=== PATIENT | male | born 1935 | race Caucasian/White ===

== ENCOUNTER 2018-08-15 00:11 | Inpatient (IN) ==
[2018-08-15] MEDS ORDERED: Ringers Solution, Lactated 1,000 ML IVC SCH (02:45)
[2018-08-15 02:51] LABS: Basophils % 0.3 %; Eosinophils # 0.2 K/mcL (0.0-0.6); Hematocrit 29.1 % (37.5-50.1); Hemoglobin 9.5 g/dL (12.9-16.9); Immature Granulocytes % 0.4 % (0-4); Lymphocytes # 0.4 K/mcL (0.6-4.6); Lymphocytes % 5.4 %; Mean Corpuscular HGB Conc 32.6 g/dL (31.6-35.5); Mean Corpuscular Hemoglobin 29.3 pg (28.0-33.3); Mean Corpuscular Volume 89.8 fL (83.0-100.0); Mean Platelet Volume 10.4 fL (9.4-12.4); Monocytes # 0.7 K/mcL (0.0-1.3); Neutrophils # 6.1 K/mcL (1.6-8.9); Platelet Count 160 K/mcL (140-400); Red Blood Count 3.24 M/mcL (4.19-5.50); Red Cell Distribution Width 13.2 % (11.5-14.5); Segmented Neutrophils % 81.9 %
--- NOTE | 2018-08-15 02:51 | Internal Med History&Physical ---
Date of Encounter: 08/15/18 Time of Encounter: 02:48 Internal Medicine - H&P: HPI Chief complaint: bleeding Admitted From: Home Plans for Post Hospital Care: Home History of present illness: Rivas Leary is an 82 year old man with a history of congestive heart failure, valvular heart disease, coronary artery disease, atrial fibrillation on warfarin, hyperlipidemia, Alzheimers dementia and psychotic disorder NOS who presents here on transfer from the [facility] where he was initially admitted to with multiple falls and manage for a UTI and possible pneumonia. He was seen to have epistaxis at the time that required nasal packing. He then developed diane hematuria during hospitalization so his warfarin was held with plans for urology evaluation. It is now reported that he passed a large volume of dark t arry stool with diane blood mixed in. The reporting physician stated that he was unable to get lab work done after this episode as the service was unavailable and could not transfuse either and therefore requested transfer to our center. Of note, he was admitted here 2 years ago for hemoptysis while on warfarin. He arrives here clinically stable. He is able to tell me his name and , occasionally answering appropriately and at other times seemingly confused. He denies abdominal and chest pain. No shortness of breath. Past Med Surg Social Fam HX - Past Medical History Medical history: arthritis, atrial fibrillation, CHF, coronary artery disease, dementia, hyperlipidemia, hypertension, myocardial infarction, valvular heart disease, other Additional medical history: chronic abdominal pain, nasal MRSA, sleep apnea, chronic low back pain, gout, bradycardia, cardiomyopathy Psychiatric history: bipolar, PTSD, other - Past Surgical History Surgical History: heart valve replacement, pacemaker - Social History Smoking Status: Never smoker Alcohol use: none Drug use: none - Family History Mother Living Status: Hx Family Cardiac Disorders: Yes (CHF) Hx Family Endocrine Disorder: Yes (DM2) Father Living Status: Internal Medicine - H&P: Meds Allopurinol [Zyloprim] 200 mg PO DAILY 09/22/16 [History] Atorvastatin [Lipitor] 40 mg PO HS 09/22/16 [History] Calcium Carbonate [Tums] 1,000 mg PO DAILY 09/22/16 [History] Cholecalciferol (Vitamin D3) [Vitamin D3] 2,000 unit PO DAILY 09/22/16 [History] Diltiazem CD (24hr) [Cardizem CD] 120 mg PO DAILY 09/22/16 [History] Docusate [Colace] 200 mg PO BID 09/22/16 [History] Furosemide [Lasix] 20 mg PO BID 09/22/16 [History] Isosorbide MONOnitrate (24 HR) [Imdur] 60 mg PO DAILY 09/22/16 [History] LORazepam [Ativan] 0.5 mg PO BID 09/22/16 [History] Lisinopril [Zestril] 10 mg PO DAILY 09/22/16 [History] Loratadine [Claritin] 10 mg PO DAILY 09/22/16 [History] Memantine HCl 10 mg PO BID 09/22/16 [History] Omeprazole [PriLOSEC] 20 mg PO BIDAC 09/22/16 [History] Paliperidone [Paliperidone ER] 3 mg PO DAILY 09/22/16 [History] Polyethylene Glycol 3350 [MiraLAX] 17 gm PO DAILY PRN 09/22/16 [History] Psyllium Husk (with Sugar) [Konsyl Psyllium Fiber Packet] 3.4 gm PO BID PRN 09/22/16 [History] Spironolactone [Aldactone] 25 mg PO DAILY 09/22/16 [History] Terazosin [Hytrin] 5 mg PO HS 09/22/16 [History] Warfarin [Coumadin] 5 mg PO SUTUTHSA 09/22/16 [History] Warfarin [Coumadin] 7.5 mg PO MOWEFR 09/22/16 [History] carBAMazepine [Tegretol] 200 mg PO QAM 09/22/16 [History] carBAMazepine [Tegretol] 400 mg PO QPM 09/22/16 [History] hydrALAZINE [HydrALAZINE] 10 mg PO Q8H 09/22/16 [History] Amoxicillin/Clavulanate [Augmentin] 875 mg PO BIDWM #7 tablet 10/01/16 [Rx] Aspirin 81 mg PO DAILY tab.chew 10/01/16 [Rx] Allergy/AdvReac Type Severity Reaction Status Date / Time felodipine Allergy See Verified 09/22/16 17:08 Comments All Systems PM: A 10-system review of systems was performed and is negative for pertinent findings except as documented above in the HPI. - Constitutional Vitals: Temp Pulse Resp BP Pulse Ox 98.6 F 89 27 152/62 94 08/15/18 02:00 08/15/18 02:00 08/15/18 02:00 08/15/18 02:00 08/15/18 02:00 Exam: Vitals: Reviewed General: Well developed, NAD Skin: Dry, warm. HEENT: Dry mucous membranes. (+) conjunctivae pallor. Neck: No lymphadenopathy. No JVD. No carotid bruits. No palpable thyroid. Chest: Normal thoracic expansion. Normal breath sounds. Clear to auscultation. Heart: Irregularly irregular. Abdomen: Non-distended, soft and non-tender to palpation. No peritoneal reaction. Extremities: No clubbing, cyanosis or edema. No calf tenderness. Normal distal pulses. Neurological: Awake, alert and oriented to person, place. No focal deficits. Psych: Affect appropriate. - Assessment and plan (1) Hematuria Current Visit: Yes Status: Acute Assessment and plan: Unclear if due to traumatic pelletier insertion or patient tugging against it or if procedent from higher above. Will consult urology as he may need bladder irrigat ion. Continue to monitor H/H, check INR and transfuse if necessary. Qualifiers: Hematuria type: gross Qualified Code(s): R31.0 - Gross hematuria (2) GI bleed Current Visit: Yes Status: Acute Assessment and plan: Witnessed by staff at the ID. Thus far no recurrences since arrival. Will give PPI, continue to monitor H/H, check INR and transfuse if necessary. GI consult will be requested. NPO status. All home oral meds will be on hold in the interim. Qualifiers: GI bleed type/associated pathology: unspecified gastrointestinal hemorrhage type Qualified Code(s): K92.2 - Gastrointestinal hemorrhage, unspecified (3) Atrial fibrillation Current Visit: Yes Status: Acute Assessment and plan: Will monitor on telemetry. Anticoagulation on hold for now due to active bleed. Check INR. Qualifiers: Atrial fibrillation type: chronic Qualified Code(s): I48.2 - Chronic atrial fibrillation (4) Congestive heart failure Current Visit: Yes Status: Acute Assessment and plan: No clinical signs of acute decompensation at this time. Will check an echo to assess EF as last study was 2 years ago. Qualifiers: Heart failure type: unspecified Heart failure chronicity: unspecified Qualified Code(s): I50.9 - Heart failure, unspecified (5) Coronary artery disease Current Visit: Yes Status: Acute Assessment and plan: For now antiplatelet therapy will remain on hold until bleeding is resolved. Qualifiers: Coronary Disease-Associated Artery/Lesion type: unspecified vessel or lesion type [place] vs. transplanted heart: [place] heart Associated angina: without angina Qualified Code(s): I25.10 - Atherosclerotic heart disease of [place] coronary artery without angina pectoris (6) DVT prophylaxis Current Visit: Yes Status: Acute Assessment and plan: IPC stockings ordered. - Time Spent With Patient Total time spent is greater than 50% in coordination of care (as documented) at patient's floor/unit and/or counseling patient: Greater than 35 minutes
[2018-08-15 02:59] LABS: INR 2.5; Prothrombin Time 28.4 Seconds (9.4-12.1)
[2018-08-15 03:01] LABS: Activated Partial Thrombo Time 38.9 Seconds (26.0-36.0)
[2018-08-15 03:05] LABS: Bilirubin,Urine Negative (Negative); Blood,Urine Large (Negative); Glucose,Urine (UA) Normal (Normal); Ketones,Urine Negative (Negative); Leukocyte Esterase,Urine Negative (Negative); Nitrite,Urine Negative (Negative); Protein,Urine >=300 mg/dL (Neg-Trace); Specific Gravity,Urine 1.012 (1.010-1.025); Urobilinogen,Urine Normal (Normal)
[2018-08-15 03:06] LABS: Clarity,Urine Turbid (Clear); Color,Urine Red (Yellow)
[2018-08-15 03:12] LABS: BUN/Creatinine Ratio 25 (6-26); Blood Urea Nitrogen 29 mg/dL (8-23); Calcium 8.4 mg/dL (8.6-10.3); Carbon Dioxide 30 mEq/L (23-29); Chloride 104 mEq/L (98-107); Glucose 143 mg/dL (70-105); Osmolality,Calculated 302 (280-300); Potassium 3.7 mEq/L (3.5-5.1); Sodium 142 mEq/L (136-145); eGFR For Non-African Americans > 60 (> 60)
[2018-08-15] MEDS: Pantoprazole 40 MG VIAL IVP SCH ×2 (05:01→17:44)
--- NOTE | 2018-08-15 09:13 | Urology - Consult Note ---
<Carolin Dugan N - Last Filed: 08/15/18 09:04> Date of Encounter: 08/15/18 Time of Encounter: 08:20 - Assessment and Plan (1) Hematuria Current Visit: Yes Status: Acute Assessment and plan: Patient is 82-year-old male who presents the history of gross hematuria. Patient has a documented history of spontaneous bleeding on warfarin. INR is 2.5. Warfarin has been held secondary to gastrointestinal bleed. Urine appears to be clearing. We will continue to monitor the patient and irrigate bladder as needed. Cystscopy may be warranted, as patient has not experienced routine urologic follow up since TURP procedure. No inpatient surgical intervention anticipated at this time. Qualifiers: Hematuria type: gross Qualified Code(s): R31.0 - Gross hematuria Urology CN:JEANETTE Consult date: 08/15/18 Reason for consult Urology: Gross Hematuria History of present illness: Patient is an 82-year-old male who presents with a history of gross hematuria. Patient was transferred from the [facility] after he was admitted for urinary tract infection and pneumonia. Patient has a significant cardiovascular history requiring anticoagulation with warfarin. It is unclear as to when hematuria was first observed, as the patient experiences some confusion when try ing to recall his past medical history. Patient reports he underwent a TURP procedure 4-5 years ago at the [facility] for urinary hesitancy and states this greatly improved his urinary symptoms. Patient denies a known personal history of prostate cancer, renal stones, or any other significant history. Patient denies a family history of prostate cancer or other cancer. Patient does not require a catheter and states he is unsure why catheter was placed on admission. Patient is unsure if he sustained any trauma on catheter insertion or if the catheter was pulled on. Patient denies smoking history. Catheter was irrigated at bedside by nighttime nursing staff, and urine is curr ently clear yellow with scant sediment in tubing. Past Med Surg Social Fam HX - Past Medical History Medical history: arthritis, atrial fibrillation, CHF, coronary artery disease, dementia, hyperlipidemia, hypertension, myocardial infarction, valvular heart disease, other Additional medical history: chronic abdominal pain, nasal MRSA, sleep apnea, chronic low back pain, gout, bradycardia, cardiomyopathy Psychiatric history: bipolar, PTSD, other - Past Surgical History Surgical History: heart valve replacement, pacemaker - Social History Smoking Status: Never smoker Alcohol use: none Drug use: none - Family History Father Living Status: Mother Living Status: Hx Family Cardiac Disorders: Yes (CHF) Hx Family Endocrine Disorder: Yes (DM2) Medications and Allergies RX: Allopurinol [Zyloprim] 200 mg PO DAILY 09/22/16 [History] RX: Atorvastatin [Lipitor] 40 mg PO HS 09/22/16 [History] RX: Calcium Carbonate [Tums] 1,000 mg PO DAILY 09/22/16 [History] RX: Cholecalciferol (Vitamin D3) [Vitamin D3] 2,000 unit PO DAILY 09/22/16 [History] RX: Diltiazem CD (24hr) [Cardizem CD] 120 mg PO DAILY 09/22/16 [History] RX: Docusate [Colace] 200 mg PO BID 09/22/16 [History] RX: Furosemide [Lasix] 20 mg PO BID 09/22/16 [History] RX: Isosorbide MONOnitrate (24 HR) [Imdur] 60 mg PO DAILY 09/22/16 [History] RX: LORazepam [Ativan] 0.5 mg PO BID 09/22/16 [History] RX: Lisinopril [Zestril] 10 mg PO DAILY 09/22/16 [History] RX: Loratadine [Claritin] 10 mg PO DAILY 09/22/16 [History] RX: Memantine HCl 10 mg PO BID 09/22/16 [History] RX: Omeprazole [PriLOSEC] 20 mg PO BIDAC 09/22/16 [History] RX: Paliperidone [Paliperidone ER] 3 mg PO DAILY 09/22/16 [History] RX: Polyethylene Glycol 3350 [MiraLAX] 17 gm PO DAILY PRN 09/22/16 [History] RX: Psyllium Husk (with Sugar) [Konsyl Psyllium Fiber Packet] 3.4 gm PO BID PRN 09/22/16 [History] RX: Spironolactone [Aldactone] 25 mg PO DAILY 09/22/16 [History] RX: Terazosin [Hytrin] 5 mg PO HS 09/22/16 [History] RX: Warfarin [Coumadin] 5 mg PO SUTUTHSA 09/22/16 [History] RX: Warfarin [Coumadin] 7.5 mg PO MOWEFR 09/22/16 [History] RX: carBAMazepine [Tegretol] 200 mg PO QAM 09/22/16 [History] RX: carBAMazepine [Tegretol] 400 mg PO QPM 09/22/16 [History] RX: hydrALAZINE [HydrALAZINE] 10 mg PO Q8H 09/22/16 [History] Amoxicillin/Clavulanate [Augmentin] 875 mg PO BIDWM #7 tablet 10/01/16 [Rx] RX: Aspirin 81 mg PO DAILY tab.chew 10/01/16 [Rx] Allergy/AdvReac Type Severity Reaction Status Date / Time felodipine Allergy See Verified 09/22/16 17:08 Comments Review of Systems - Constitutional no chills, no fatigue, no fever(s) - EENT Nose, mouth and throat: no dizziness, no headache(s) - Cardiovascular dyspnea, no chest pain, no diaphoresis - Respiratory cough, dyspnea - Gastrointestinal no abdominal pain, no change in bowel habits, no nausea, no vomiting - Genitourinary hematuria, no difficulty urinating, no dysuria, no flank pain, no urinary frequency, no urinary hesitancy, no urinary urgency - Musculoskeletal no back pain, no muscle weakness - Integumentary no erythema, no rash, no swelling - Neurological confusion, no sensory deficit - Psychiatric confusion, no anxiety - Hematologic/Lymphatic easy bleeding, easy bruising - Allergic/Immunologic no throat swelling, no wheezing Exam Initial Vital Signs Temp Pulse Resp BP Pulse Ox 98.6 F 89 27 152/62 94 08/15/18 02:00 08/15/18 02:00 08/15/18 02:00 08/15/18 02:00 08/15/18 02:00 - General physical appearance Present: well developed, no distress, no pain - Eyes Present: PERRL, normal ocular movement - ENT Present: normal nares. Absent: no congestion - Neck Present: no masses, trachea midline - Respiratory Absent: normal respiratory effort - Cardiovascular Cardiovascular exam IM: RRR - Abdomen Abdomen: Present: soft, non tender - Integumentary Present: no rash, no abnormal pigmentation - Neurologic Present: disoriented Urology Results - Labs 08/15/18 02:18 08/15/18 02:18 Abnormal lab results RBC 3.24 M/mcL (4.19-5.50) L 08/15/18 02:18 Hgb 9.5 g/dL (12.9-16.9) L 08/15/18 02:18 Hct 29.1 % (37.5-50.1) L 08/15/18 02:18 Lymphocytes # 0.4 K/mcL (0.6-4.6) L 08/15/18 02:18 PT 28.4 Seconds (9.4-12.1) H 08/15/18 02:18 APTT 38.9 Seconds (26.0-36.0) H 08/15/18 02:18 Carbon Dioxide 30 mEq/L (23-29) H 08/15/18 02:18 BUN 29 mg/dL (8-23) H 08/15/18 02:18 Glucose 143 mg/dL (70-105) H 08/15/18 02:18 Calculated Osmolality 302 (280-300) H 08/15/18 02:18 Calcium 8.4 mg/dL (8.6-10.3) L 08/15/18 02:18 Ur Specimen Adequacy See below A 08/15/18 02:45 Urine Color Red (Yellow) A 08/15/18 02:45 Urine Clarity Turbid (Clear) A 08/15/18 02:45 Urine Protein >=300 mg/dL (Neg-Trace) H 08/15/18 02:45 Urine Blood Large (Negative) H 08/15/18 02:45 Diabetes panel 08/15/18 Range/Units 02:18 Sodium 142 (136-145) mEq/L Potassium 3.7 (3.5-5.1) mEq/L Chloride 104 (98-107) mEq/L Carbon Dioxide 30 H (23-29) mEq/L BUN 29 H (8-23) mg/dL Creatinine 1.16 (0.70-1.30) mg/dL Glucose 143 H (70-105) mg/dL Calcium 8.4 L (8.6-10.3) mg/dL Calcium panel 08/15/18 Range/Units 02:18 Calcium 8.4 L (8.6-10.3) mg/dL Pituitary panel 08/15/18 Range/Units 02:18 Sodium 142 (136-145) mEq/L Potassium 3.7 (3.5-5.1) mEq/L Chloride 104 (98-107) mEq/L Carbon Dioxide 30 H (23-29) mEq/L BUN 29 H (8-23) mg/dL Creatinine 1.16 (0.70-1.30) mg/dL Glucose 143 H (70-105) mg/dL Calcium 8.4 L (8.6-10.3) mg/dL Adrenal panel 08/15/18 Range/Units 02:18 Sodium 142 (136-145) mEq/L Potassium 3.7 (3.5-5.1) mEq/L Chloride 104 (98-107) mEq/L Carbon Dioxide 30 H (23-29) mEq/L BUN 29 H (8-23) mg/dL Creatinine 1.16 (0.70-1.30) mg/dL Glucose 143 H (70-105) mg/dL Calcium 8.4 L (8.6-10.3) mg/dL All other labs normal. Consult Discharge Plan - Plan [facility]errals[facility] Care Provider[facility] - <Justin Hayes - Last Filed: 08/15/18 10:16> Date of Encounter: 08/15/18 - Assessment and Plan (1) Hematuria Current Visit: Yes Status: Acute Assessment and plan: pt seen in conjunction with physician medical technician assistant. Agree with findings. We will continue to follow the patient. Qualifiers: Hematuria type: gross Qualified Code(s): R31.0 - Gross hematuria Exam Initial Vital Signs Temp Pulse Resp BP Pulse Ox 98.6 F 89 27 152/62 94 08/15/18 02:00 08/15/18 02:00 08/15/18 02:00 08/15/18 02:00 08/15/18 02:00 Urology Results - Labs 08/15/18 02:18 08/15/18 02:18 Abnormal lab results RBC 3.24 M/mcL (4.19-5.50) L 08/15/18 02:18 Hgb 9.5 g/dL (12.9-16.9) L 08/15/18 02:18 Hct 29.1 % (37.5-50.1) L 08/15/18 02:18 Lymphocytes # 0.4 K/mcL (0.6-4.6) L 08/15/18 02:18 PT 28.4 Seconds (9.4-12.1) H 08/15/18 02:18 APTT 38.9 Seconds (26.0-36.0) H 08/15/18 02:18 Carbon Dioxide 30 mEq/L (23-29) H 08/15/18 02:18 BUN 29 mg/dL (8-23) H 08/15/18 02:18 Glucose 143 mg/dL (70-105) H 08/15/18 02:18 Calculated Osmolality 302 (280-300) H 08/15/18 02:18 Calcium 8.4 mg/dL (8.6-10.3) L 08/15/18 02:18 Ur Specimen Adequacy See below A 08/15/18 02:45 Urine Color Red (Yellow) A 08/15/18 02:45 Urine Clarity Turbid (Clear) A 08/15/18 02:45 Urine Protein >=300 mg/dL (Neg-Trace) H 08/15/18 02:45 Urine Blood Large (Negative) H 08/15/18 02:45 Diabetes panel 08/15/18 Range/Units 02:18 Sodium 142 (136-145) mEq/L Potassium 3.7 (3.5-5.1) mEq/L Chloride 104 (98-107) mEq/L Carbon Dioxide 30 H (23-29) mEq/L BUN 29 H (8-23) mg/dL Creatinine 1.16 (0.70-1.30) mg/dL Glucose 143 H (70-105) mg/dL Calcium 8.4 L (8.6-10.3) mg/dL Calcium panel 08/15/18 Range/Units 02:18 Calcium 8.4 L (8.6-10.3) mg/dL Pituitary panel 08/15/18 Range/Units 02:18 Sodium 142 (136-145) mEq/L Potassium 3.7 (3.5-5.1) mEq/L Chloride 104 (98-107) mEq/L Carbon Dioxide 30 H (23-29) mEq/L BUN 29 H (8-23) mg/dL Creatinine 1.16 (0.70-1.30) mg/dL Glucose 143 H (70-105) mg/dL Calcium 8.4 L (8.6-10.3) mg/dL Adrenal panel 08/15/18 Range/Units 02:18 Sodium 142 (136-145) mEq/L Potassium 3.7 (3.5-5.1) mEq/L Chloride 104 (98-107) mEq/L Carbon Dioxide 30 H (23-29) mEq/L BUN 29 H (8-23) mg/dL Creatinine 1.16 (0.70-1.30) mg/dL Glucose 143 H (70-105) mg/dL Calcium 8.4 L (8.6-10.3) mg/dL All other labs normal.
--- NOTE | 2018-08-15 12:09 | Gastroenterology Consult Note ---
<Brie Bueno - Last Filed: 08/15/18 16:35> Date of Encounter: 08/15/18 Time of Encounter: 11:00 - Assessment and plan (1) Anemia Current Visit: No Status: Acute Assessment and plan: 82 year old male who is on coumadin. He presented with melena, epistaxis and hematuria. Coumadin is on hold. Will proceed with EGD tomorrow to rule out puD, gastritis, duodenitis, MW tear, or AVM. Continue PPI, monitor H&h, transfuse as needed. Qualifiers: Anemia type: other cause Other causes of anemia: other cause, not classified Qualified Code(s): D64.89 - Other specified anemias (2) Acute exacerbation of CHF (congestive heart failure) Current Visit: No Status: Acute (3) GI bleed Current Visit: Yes Status: Acute Qualifiers: GI bleed type/associated pathology: melena Qualified Code(s): K92.1 - Melena - Time Spent With Patient Total time spent is greater than 50% in coordination of care (as documented) at patient's floor/unit and/or counseling patient: GI History of Present Illness - Data of Consult Patient: new to practice Consult date: 08/15/18 Requesting Physician: Atul Nieto MD - Consult Narrative Reason for consult: melena History of present illness: Rivas Leary is an 82 year old man with a history of congestive heart failure, valvular heart disease, coronary artery disease, atrial fibrillation on warfarin, hyperlipidemia, Alzheimers dementia and psychotic disorder. He presented here on transfer from the [facility] where he was initially admitted to with multiple falls and manage for a UTI and possible pneumonia. He was seen to have epistaxis at the time that required nasal packing. He then developed fra nk hematuria during hospitalization so his warfarin was held with plans for urology evaluation. It is now reported that he passed a large volume of dark tarry stool with diane blood mixed in. The reporting physician stated that he was unable to get lab work done after this episode as the service was unavailable and could not transfuse either and therefore requested transfer to our center. Of note, he was admitted here 2 years ago for hemoptysis while on warfarin. Hgb was 9.5 on admission baseline 10-11. INR was 2.5. He denies any abdominal pain, nausea, vomiting, GERD. he does admit to one episode of large amount black stool, shortness of breath and weakness. Colonoscopy: 2 years ago per pt? Anticoagulants: coumadin Past Med Surg Social Fam HX - Past Medical History Medical history: arthritis, atrial fibrillation, CHF, coronary artery disease, dementia, hyperlipidemia, hypertension, myocardial infarction, valvular heart disease, other Additional medical history: chronic abdominal pain, nasal MRSA, sleep apnea, chronic low back pain, gout, bradycardia, cardiomyopathy Psychiatric history: bipolar, PTSD, other - Past Surgical History Surgical History: heart valve replacement, pacemaker - Social History Smoking Status: Never smoker Alcohol use: none Drug use: none - Family History Mother Living Status: Hx Family Cardiac Disorders: Yes (CHF) Hx Family Endocrine Disorder: Yes (DM2) Father Living Status: Review of Systems: GI: as per [place] GENERAL: denies fever, has some chills EYES: denies yellow discoloration ENT: denies pain with swallowing or difficulty swallowing CARDIO: denies chest pain, palpitations RESP: Shortness of breath with exertion : denies change in color of urine NEURO: weakness HEME: Denies any bruising MS: chronic back and joint DERM: denies rash or itching PSYCH: Denies history of anxiety or depression - Constitutional Vitals: Temp Pulse Resp BP Pulse Ox 99.6 F 74 16 151/60 97 08/15/18 08:03 08/15/18 11:00 08/15/18 11:00 08/15/18 11:00 08/15/18 11:00 Exam: CONSTITUTIONAL:alert, no acute distress.HEAD:normocephalic.EYES:no jaundice.NECK:no obvious swelling.HEART:regular rate and rhythm, no m urmurs.LUNGS:bilateral poor air entry.ABDOMEN:non distended, soft, non tender, no masses palpable, no organomegaly.RECTAL EXAM:Deferred.EXTREMITIES:no clubbing, cyanosis, trace BLE edema.SKIN:no stigmata of chronic liver disease.NEUROLOGIC:no obvious focal defect. Results - Labs CBC & Chem 7: 08/15/18 02:18 08/15/18 02:18 Labs: Last Result Calcium 8.4 mg/dL (8.6-10.3) L 08/15/18 02:18 Entire Visit Hgb 9.5 g/dL (12.9-16.9) L 08/15/18 02:18 Hct 29.1 % (37.5-50.1) L 08/15/18 02:18 PT 28.4 Seconds (9.4-12.1) H 08/15/18 02:18 - ABG ABG results: PT/INR, D-dimer PT 28.4 Seconds (9.4-12.1) H 08/15/18 02:18 Consult Discharge Plan - Plan [facility]errals: [facility] [Primary Care Provider] - <Roselia Barnhart - Last Filed: 08/15/18 16:53> Date of Encounter: 08/15/18 Time of Encounter: 14:00 - Time Spent With Patient Total time spent is greater than 50% in coordination of care (as documented) at patient's floor/unit and/or counseling patient: GI History of Present Illness - Data of Consult Requesting Physician: Atul Nieto MD - Consult Narrative History of present illness: Mr. Leary is a 82 year old male - Constitutional Vitals: Temp Pulse Resp BP Pulse Ox 98.9 F 77 15 184/79 95 08/15/18 12:00 08/15/18 16:00 08/15/18 16:00 08/15/18 16:00 08/15/18 16:00 Results - Labs CBC & Chem 7: 08/15/18 02:18 08/15/18 02:18 Labs: Last Result Calcium 8.4 mg/dL (8.6-10.3) L 08/15/18 02:18 Entire Visit Hgb 9.5 g/dL (12.9-16.9) L 08/15/18 02:18 Hct 29.1 % (37.5-50.1) L 08/15/18 02:18 PT 28.4 Seconds (9.4-12.1) H 08/15/18 02:18 - ABG ABG results: PT/INR, D-dimer PT 28.4 Seconds (9.4-12.1) H 08/15/18 02:18 - Attending Attestation I have personally performed a face to face evaluation on this patient. I have reviewed and agree with the care plan. History and Exam by me shows: Patient seen in the ICU per patient. Per The patient was having black stool. Per nursing staff last bowel movement was brown. Denies any abdominal pain and abdomen is soft. Assessment: Patient with melena with high INR due to chronic Coumadin intake. Recommendation: EGD to make sure no peptic ulcer disease
[2018-08-15] MEDS ORDERED: *HR* Labetalol 20 MG/4 ML SYRINGE IVP ONE (17:49)
[2018-08-16] MEDS: Pantoprazole 40 MG VIAL IVP SCH ×2 (05:14→17:15)
[2018-08-16 05:44] LABS: Basophils % 0.3 %; Eosinophils # 0.4 K/mcL (0.0-0.6); Eosinophils % 5.2 %; Hematocrit 29.1 % (37.5-50.1); Hemoglobin 9.5 g/dL (12.9-16.9); Immature Granulocytes % 0.6 % (0-4); Lymphocytes # 0.8 K/mcL (0.6-4.6); Mean Corpuscular HGB Conc 32.6 g/dL (31.6-35.5); Mean Corpuscular Hemoglobin 29.6 pg (28.0-33.3); Mean Corpuscular Volume 90.7 fL (83.0-100.0); Monocytes # 0.7 K/mcL (0.0-1.3); Monocytes % 10.7 %; Platelet Count 167 K/mcL (140-400); Red Blood Count 3.21 M/mcL (4.19-5.50); Red Cell Distribution Width 13.2 % (11.5-14.5); Segmented Neutrophils % 72.2 %
[2018-08-16 06:04] LABS: Alanine Aminotransferase 61 Units/L (7-52); Alkaline Phosphatase 120 Units/L (34-104); Aspartate Amino Transferase 82 Units/L (13-39); BUN/Creatinine Ratio 23 (6-26); Bilirubin,Total 0.3 mg/dL (0.3-1.0); Blood Urea Nitrogen 24 mg/dL (8-23); Calcium 8.5 mg/dL (8.6-10.3); Carbon Dioxide 31 mEq/L (23-29); Chloride 105 mEq/L (98-107); Globulin 2.9 g/dL (2.4-3.5); Glucose 122 mg/dL (70-105); Osmolality,Calculated 301 (280-300); Potassium 3.8 mEq/L (3.5-5.1); Sodium 143 mEq/L (136-145); Total Protein 5.9 g/dL (6.4-8.9); eGFR For Non-African Americans > 60 (> 60)
--- NOTE | 2018-08-16 08:36 | Internal Med Progress Note ---
Hospitalist Progress Note - Encounter Date of Encounter: 08/16/18 Time of Encounter: 08:19 - Subjective Interval History: Patient seen and examined this morning. No acute events. Confused. Did not have any complains. Denies any pain, sob. Urine still blood and occasional clots. HR controlled. On 2L supplemental oxygne. No fever, chills, N/V. NPO. no Bloody BM. - Exam Vitals: Temp Pulse Resp BP Pulse Ox 99.1 F 62 22 175/79 96 08/16/18 03:00 08/16/18 06:00 08/16/18 06:00 08/16/18 06:00 08/16/18 06:00 Exam: General: Well developed, NAD. Obese Skin: Dry, warm. HEENT: Dry mucous membranes. Neck: No lymphadenopathy. No JVD. No carotid bruits. No palpable thyroid. Chest: Normal thoracic expansion. Normal breath sounds. Clear to auscultation. Heart: regular rhytm. ejection systolic murmur. Abdomen: Non-distended, soft and non-tender to palpation. No peritoneal reaction. Extremities: No clubbing, cyanosis or edema. No calf tenderness. Normal distal pulses. Neurological:Confused. AOx1. No focal deficits - Assessment and Plan (1) Atrial fibrillation Current Visit: Yes Status: Acute (2) Congestive heart failure Current Visit: Yes Status: Acute (3) DVT prophylaxis Current Visit: Yes Status: Acute (4) Coronary artery disease Current Visit: Yes Status: Acute (5) Hematuria Current Visit: Yes Status: Acute (6) GI bleed Current Visit: Yes Status: Acute - Summary of Assessment and Plan Summary of Assessment and Plan: GI bleed - Witnessed by staff at the [facility]. No further evidence here. - c/w PPI. NPO - H&H and vitals stable. will tansfuse if necessary. GI consult will be request ed. - Plan for EGD today. GI following. Recommendation appreciated. - Hold coumadin Hematuria - h/o prostate ca and TURP and not had follow up. - Unclear if due to traumatic pelletier insertion or patient tugging against it - Urology following. No intervention as of now. On bladder irrigation. - Still with blood in urine and occasional clots. Urology recommendations appreciated. HTN - PO meds on hold - BP high. start hydralazine 10 q8hr. - continue to monitor Atrial fibrillation - rate controlled. Will start cardizem if needed. Restart home dose when started on diet. - [id number] of 5. Anticoagulation on hold for now due to active bleed. - Will monitor on telemetry. Congestive heart failure - No clinical signs of acute decompensation - ECHO with EF of 60-65, Mod LVH, mild Lt diastolic dysfunction. severe pulmonary HTN. Mod aortic stenosis. Mild dilated lt atrium. Coronary artery disease - Does not appear to be on aspirin or plavix at home - Will start statin when able to. DVT prophylaxis - IPC stockings. - Time Spent with Patient Total time spent is greater than 50% in coordination of care (as documented) at patient's floor/unit and/or counseling patient: Internal Medicine: Result - Labs CBC & Chem 7: 08/16/18 05:31 08/16/18 05:31 Labs: Short CBC 08/16/18 Range/Units 05:31 WBC 6.9 (4.3-11.1) K/mcL Hgb 9.5 L (12.9-16.9) g/dL Hct 29.1 L (37.5-50.1) % Plt Count 167 (140-400) K/mcL Neutrophils # 5.0 (1.6-8.9) K/mcL BMP 08/16/18 05:31 Sodium 143 Potassium 3.8 Chloride 105 Carbon Dioxide 31 H BUN 24 H Creatinine 1.05 Glucose 122 H Calcium 8.5 L Liver Function 08/16/18 Range/Units 05:31 Total Bilirubin 0.3 (0.3-1.0) mg/dL AST 82 H (13-39) Units/L ALT 61 H (7-52) Units/L Alkaline Phosphatase 120 H (34-104) Units/L Albumin 3.0 L (3.5-5.7) g/dL - ABG Interpretation ABG results: PT/INR, D-dimer PT 28.4 Seconds (9.4-12.1) H 08/15/18 02:18 - Impressions Impressions Echocardiogram 08/15/18 02:45 Impressions: LVEF 60-65%. Normal LV chamber size and systolic function. Moderate concentric left ventricular hypertrophy. Mild left ventricular diastolic dysfunction. Normal right ventricular structure and function. Mildly dilated left atrium. Moderate aortic stenosis. Mild-moderate mitral regurgitation. Mild-moderate tricuspid regurgitation. Severe pulmonary hypertension. Left Ventricular Wall Motion: Rest Echo Findings All wall segments showed normal motion. Findings: Study Quality * Technically adequate exam. ECG Findings * Paced rhythm. Left Ventricle * LVEF 60-65%. * Normal LV chamber size and systolic function. * Moderate concentric left ventricular hypertrophy. * Mild left ventricular diastolic dysfunction. * Atypical septal motion consistent with paced rhythm. Right Ventricle * Normal right ventricular structure and function. Left Atrium * Mildly dilated left atrium. Right Atrium * Normal right atrial size. Interatrial Septum * Interatrial septum not well evaluated. Aortic Valve * Severely calcified aortic valve leaflets. * Moderate aortic stenosis. * Trace aortic regurgitation. Mitral Valve * No mitral stenosis. * Mild-moderate mitral regurgitation. Tricuspid Valve * Normal tricuspid valve structure. * No tricuspid stenosis. * Mild-moderate tricuspid regurgitation. * Estimated RVSP is 67 mmHg. * Estimated RA pressure is 10 mmHg. * Severe pulmonary hypertension. Pulmonic Valve * Pulmonic valve is not well visualized. * No pulmonic stenosis. * Trace pulmonic regurgitation. Aorta * Normally sized aortic root. Pericardium * The pericardium appears normal. IVC * Normal IVC dimensions and inspiratory collapse. Device lead * A device lead was visualized in the right atrium and right ventricle. - VTE Documentation of Mechanical Device: Intermittent pneumatic compression device Consult Discharge Plan - Plan [facility]errals: [facility] [Primary Care Provider] - (1) Atrial fibrillation Qualifiers: Atrial fibrillation type: chronic Qualified Code(s): I48.2 - Chronic atrial fibrillation (2) Congestive heart failure Qualifiers: Heart failure type: unspecified Heart failure chronicity: unspecified Qualified Code(s): I50.9 - Heart failure, unspecified (4) Coronary artery disease Qualifiers: Coronary Disease-Associated Artery/Lesion type: unspecified vessel or lesion type [place] vs. transplanted heart: [place] heart Associated angina: without angina Qualified Code(s): I25.10 - Atherosclerotic heart disease of [place] coronary artery without angina pectoris (5) Hematuria Qualifiers: Hematuria type: gross Qualified Code(s): R31.0 - Gross hematuria (6) GI bleed Qualifiers: GI bleed type/associated pathology: melena Qualified Code(s): K92.1 - Melena
[2018-08-16 08:42] LABS: INR 2.7; Prothrombin Time 29.9 Seconds (9.4-12.1)
--- NOTE | 2018-08-16 10:34 | Urology Progress Note ---
<Carolni Dugan N - Last Filed: 08/16/18 11:20> Date of Encounter: 08/16/18 Time of Encounter: 09:50 - Assessment and Plan (1) Hematuria Current Visit: Yes Status: Acute Assessment and plan: Patient is an 82 year old male who presents with a history of gross hematuria. Patient's urine was clear on initial examination yesterday, but today, urine is opaque fruit punch with small clots at urethral meatus. Plan to upsize catheter to 24Fr 3-way and initiate CBI. Qualifiers: Hematuria type: gross Qualified Code(s): R31.0 - Gross hematuria Progress Note Narrative: Patient seen and examined lying in bed in no apparent distress. Patient reports bleeding around catheter. Rey catheter is indwelling and draining opaque fruit punch urine into bedside bag. Nurse reports Patient denies fever, chills, flank pain. Objective Initial Vital Signs Pulse Resp BP Pulse Ox 68 19 160/64 95 08/15/18 00:00 08/15/18 00:00 08/15/18 00:00 08/15/18 00:00 - General physical appearance Present: well developed, no distress - Respiratory Present: normal expansion. Absent: normal respiratory effort - Abdomen Present: soft, non tender - Genitourinary Present: normal penis with no external lesions Urine Appearance: Present: Cloudy, Hematuria - Integumentary Present: no rash, no abnormal pigmentation - Musculoskeletal Present: normal posture - Psychiatric Present: oriented to time, oriented to person, oriented to place, speech is normal, memory intact - Labs 08/16/18 05:31 08/16/18 05:31 Diabetes panel 08/16/18 Range/Units 05:31 Sodium 143 (136-145) mEq/L Potassium 3.8 (3.5-5.1) mEq/L Chloride 105 (98-107) mEq/L Carbon Dioxide 31 H (23-29) mEq/L BUN 24 H (8-23) mg/dL Creatinine 1.05 (0.70-1.30) mg/dL Glucose 122 H (70-105) mg/dL Calcium 8.5 L (8.6-10.3) mg/dL AST 82 H (13-39) Units/L ALT 61 H (7-52) Units/L Alkaline Phosphatase 120 H (34-104) Units/L Albumin 3.0 L (3.5-5.7) g/dL Calcium panel 08/16/18 Range/Units 05:31 Calcium 8.5 L (8.6-10.3) mg/dL Albumin 3.0 L (3.5-5.7) g/dL Pituitary panel 08/16/18 Range/Units 05:31 Sodium 143 (136-145) mEq/L Potassium 3.8 (3.5-5.1) mEq/L Chloride 105 (98-107) mEq/L Carbon Dioxide 31 H (23-29) mEq/L BUN 24 H (8-23) mg/dL Creatinine 1.05 (0.70-1.30) mg/dL Glucose 122 H (70-105) mg/dL Calcium 8.5 L (8.6-10.3) mg/dL Adrenal panel 08/16/18 Range/Units 05:31 Sodium 143 (136-145) mEq/L Potassium 3.8 (3.5-5.1) mEq/L Chloride 105 (98-107) mEq/L Carbon Dioxide 31 H (23-29) mEq/L BUN 24 H (8-23) mg/dL Creatinine 1.05 (0.70-1.30) mg/dL Glucose 122 H (70-105) mg/dL Calcium 8.5 L (8.6-10.3) mg/dL Total Bilirubin 0.3 (0.3-1.0) mg/dL AST 82 H (13-39) Units/L ALT 61 H (7-52) Units/L Alkaline Phosphatase 120 H (34-104) Units/L Albumin 3.0 L (3.5-5.7) g/dL Procedures:Urology - Catheter Insertion (Urinary) Prophylactic antibiotics given: No Bladder Scan/Ultrasound used before catheterization: No Preparation: Povidone-Iodine, Lidocaine Jelly Type of catheter inserted: 3 way Catheter American Size: 24 Topical anesthesia used: Yes Results: successfully catheterized-immediate flow Urine Appearance: Hematuria, Small Blood Clots Patient tolerated procedure: well, no complications Complications: bloody urine - VTE Documentation of Mechanical Device: Intermittent pneumatic compression device Consult Discharge Plan - Plan Referrals: [facility] [Primary Care Provider] - <Justin Hayes - Last Filed: 08/16/18 18:53> Date of Encounter: 08/16/18 - Assessment and Plan (1) Hematuria Current Visit: Yes Status: Acute Assessment and plan: pt seen this afternoon. urine clearing with CBI. will continue to follow. hop efully will clear in next day or so. Qualifiers: Hematuria type: gross Qualified Code(s): R31.0 - Gross hematuria Objective Initial Vital Signs Pulse Resp BP Pulse Ox 68 19 160/64 95 08/15/18 00:00 08/15/18 00:00 08/15/18 00:00 08/15/18 00:00 - Labs 08/16/18 05:31 08/16/18 05:31 Diabetes panel 08/16/18 Range/Units 05:31 Sodium 143 (136-145) mEq/L Potassium 3.8 (3.5-5.1) mEq/L Chloride 105 (98-107) mEq/L Carbon Dioxide 31 H (23-29) mEq/L BUN 24 H (8-23) mg/dL Creatinine 1.05 (0.70-1.30) mg/dL Glucose 122 H (70-105) mg/dL Calcium 8.5 L (8.6-10.3) mg/dL AST 82 H (13-39) Units/L ALT 61 H (7-52) Units/L Alkaline Phosphatase 120 H (34-104) Units/L Albumin 3.0 L (3.5-5.7) g/dL Calcium panel 08/16/18 Range/Units 05:31 Calcium 8.5 L (8.6-10.3) mg/dL Albumin 3.0 L (3.5-5.7) g/dL Pituitary panel 08/16/18 Range/Units 05:31 Sodium 143 (136-145) mEq/L Potassium 3.8 (3.5-5.1) mEq/L Chloride 105 (98-107) mEq/L Carbon Dioxide 31 H (23-29) mEq/L BUN 24 H (8-23) mg/dL Creatinine 1.05 (0.70-1.30) mg/dL Glucose 122 H (70-105) mg/dL Calcium 8.5 L (8.6-10.3) mg/dL Adrenal panel 08/16/18 Range/Units 05:31 Sodium 143 (136-145) mEq/L Potassium 3.8 (3.5-5.1) mEq/L Chloride 105 (98-107) mEq/L Carbon Dioxide 31 H (23-29) mEq/L BUN 24 H (8-23) mg/dL Creatinine 1.05 (0.70-1.30) mg/dL Glucose 122 H (70-105) mg/dL Calcium 8.5 L (8.6-10.3) mg/dL Total Bilirubin 0.3 (0.3-1.0) mg/dL AST 82 H (13-39) Units/L ALT 61 H (7-52) Units/L Alkaline Phosphatase 120 H (34-104) Units/L Albumin 3.0 L (3.5-5.7) g/dL
--- NOTE | 2018-08-16 12:17 | Event Note ---
Date of Encounter: 08/16/18 Time of Encounter: 12:00 Unable to complete EGD today due to INR 2.7. Will plan for EGD tomorrow if INR around 2. Can resume diet if no other contraindications.
[2018-08-16] MEDS ORDERED: *HR* LORazepam 0.5 MG TABLET PO ONE (21:28)
[2018-08-17] MEDS ORDERED: OXYCODONE Oral CONC 10 MG/0.5 ML ORAL.SYG SL ONE ×2 (02:23→05:57)
[2018-08-17] MEDS: Pantoprazole 40 MG VIAL IVP SCH ×2 (06:28→19:00)
--- NOTE | 2018-08-17 06:38 | Urology Progress Note ---
Date of Encounter: 08/17/18 Time of Encounter: 06:36 - Assessment and Plan (1) Hematuria Current Visit: Yes Status: Acute Assessment and plan: Based on my exam and irrigation today I do not suspect that clot retention and overflow incontinence overnight. Likely severe bladder spasms. We will stop CBI, start hyoscyamine, start B and O suppository Qualifiers: Hematuria type: gross Qualified Code(s): R31.0 - Gross hematuria Progress Note Narrative: Called because of significant pain from the catheter and significant leakage around the catheter overnight. Bladder scan 30 mL Objective Initial Vital Signs Pulse Resp BP Pulse Ox 68 19 160/64 95 08/15/18 00:00 08/15/18 00:00 08/15/18 00:00 08/15/18 00:00 - General physical appearance Present: no distress - Additional Exam I irrigated the catheter multiple times at the bedside. I had return of small amount of clot but otherwise irrigated easily. I do not suspect clot retention - Labs 08/16/18 05:31 08/16/18 05:31 - VTE Documentation of Mechanical Device: Intermittent pneumatic compression device Consult Discharge Plan - Plan Referrals: [facility] [Primary Care Provider] -
[2018-08-17 07:54] LABS: INR 2.5; Prothrombin Time 28.2 Seconds (9.4-12.1)
[2018-08-17] MEDS: *HR* Belladonna Alkaloids/Opium 30 MG RECTAL SUPPOSITORY RC PRN ×2 (09:24→15:39)
--- NOTE | 2018-08-17 09:33 | Urology Progress Note ---
<Carolin Dugan Zahra - Last Filed: 08/17/18 09:30> Date of Encounter: 08/17/18 Time of Encounter: 08:15 - Assessment and Plan (1) Hematuria Current Visit: Yes Status: Acute Assessment and plan: Patient is an 82-year-old male who presents the history of gross hematuria. Patient was initially upsized to a 24-[place] hematuria catheter and started on continuous bladder irrigation. He has gone through multiple hand irrigations to achieve clear urine. Urine is currently clear and draining into bedside bag. H&H is stable. We will reevaluate this afternoon. Qualifiers: Hematuria type: gross Qualified Code(s): R31.0 - Gross hematuria Progress Note Subjective: no new complaints, feels better Narrative: Patient seen and examined sitting upright in bed in no apparent distress. Patient denies catheter discomfort or feeling of obstruction. Urine is clear yellow and draining into bedside bag. Objective Initial Vital Signs Pulse Resp BP Pulse Ox 68 19 160/64 95 08/15/18 00:00 08/15/18 00:00 08/15/18 00:00 08/15/18 00:00 - General physical appearance Present: well developed, no distress, no pain - Respiratory Present: normal expansion, normal respiratory effort - Abdomen Present: soft, non tender - Genitourinary Urine Appearance: Present: Clear - Integumentary Present: no rash, no abnormal pigmentation - Musculoskeletal Present: normal posture - Psychiatric Present: oriented to time, oriented to person, oriented to place, speech is normal, memory intact - Labs 08/16/18 05:31 08/16/18 05:31 - VTE Documentation of Mechanical Device: Intermittent pneumatic compression device Consult Discharge Plan - Plan Referrals: [facility] [Primary Care Provider] - <Justin Hayes - Last Filed: 08/18/18 06:30> Date of Encounter: 08/18/18 - Assessment and Plan (1) Hematuria Current Visit: Yes Status: Acute Assessment and plan: 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 Agree with plan and treatment Qualifiers: Hematuria type: gross Qualified Code(s): R31.0 - Gross hematuria Objective Initial Vital Signs Pulse Resp BP Pulse Ox 68 19 160/64 95 08/15/18 00:00 08/15/18 00:00 08/15/18 00:00 08/15/18 00:00 - Labs 08/18/18 06:07 08/16/18 05:31
--- NOTE | 2018-08-17 13:07 | Internal Med Progress Note ---
Hospitalist Progress Note - Encounter Date of Encounter: 08/17/18 Time of Encounter: 11:15 - Subjective Interval History: Patient seen and examined this morning. No acute events. Denies new complains. c/o pain around penis. Denies any pain, sob. No fever, chills, N/V. NPO. no Bloody BM. - Exam Vitals: Temp Pulse Resp BP Pulse Ox 98.3 F 66 16 164/67 95 08/17/18 10:36 08/17/18 10:36 08/17/18 10:36 08/17/18 10:36 08/17/18 10:36 Exam: General: Well developed, NAD. Obese Neck: No lymphadenopathy. No JVD. No carotid bruits. No palpable thyroid. Chest: Normal thoracic expansion. Normal breath sounds. Clear to auscultation. Heart: regular rhytm. ejection systolic murmur. Abdomen: Non-distended, soft and non-tender to palpation. No peritoneal reaction. Rey catheter in place. clear dark urine. Extremities: No clubbing, cyanosis or edema. No calf tenderness. Normal distal pulses. Neurological: Confused. AOx1. No focal deficits - Assessment and Plan (1) Atrial fibrillation Current Visit: Yes Status: Acute (2) Congestive heart failure Current Visit: Yes Status: Acute (3) DVT prophylaxis Current Visit: Yes Status: Acute (4) Coronary artery disease Current Visit: Yes Status: Acute (5) Hematuria Current Visit: Yes Status: Acute (6) GI bleed Current Visit: Yes Status: Acute - Summary of Assessment and Plan Summary of Assessment and Plan: GI bleed - Witnessed by staff at the [facility]. No further evidence here. - DId not have EGD given elevated INR yesterday. Plan to have it today. - c/w PPI. - H&H and vitals stable. will tansfuse if necessary. - Hold coumadin Hematuria - h/o prostate ca and TURP and not had follow up. - Urology following. CBI stopped. Stared on hyoscyamine for bladder spasm. No suspicion of clot retention. HTN - PO meds on hold - c/w hydralazine - continue to monitor Atrial fibrillation - rate controlled. Will start cardizem if needed. Restart home dose when started on diet. - [id number] of 5. Anticoagulation on hold for now due to active bleed. - Will monitor on telemetry. Congestive heart failure - No clinical signs of acute decompensation - ECHO with EF of 60-65, Mod LVH, mild Lt diastolic dysfunction. severe pulmonary HTN. Mod aortic stenosis. Mild dilated lt atrium. Coronary artery disease - Does not appear to be on aspirin or plavix at home - Will start statin when able to. DVT prophylaxis - IPC stockings. - Time Spent with Patient Total time spent is greater than 50% in coordination of care (as documented) at patient's floor/unit and/or counseling patient: Internal Medicine: Result - Labs CBC & Chem 7: 08/16/18 05:31 08/16/18 05:31 - ABG Interpretation ABG results: PT/INR, D-dimer PT 28.2 Seconds (9.4-12.1) H 08/17/18 07:21 - VTE Documentation of Mechanical Device: Intermittent pneumatic compression device Consult Discharge Plan - Plan Referrals: [facility] [Primary Care Provider] - (1) Atrial fibrillation Qualifiers: Atrial fibrillation type: chronic Qualified Code(s): I48.2 - Chronic atrial fibrillation (2) Congestive heart failure Qualifiers: Heart failure type: unspecified Heart failure chronicity: unspecified Qualified Code(s): I50.9 - Heart failure, unspecified (4) Coronary artery disease Qualifiers: Coronary Disease-Associated Artery/Lesion type: unspecified vessel or lesion type [place] vs. transplanted heart: [place] heart Associated angina: without angina Qualified Code(s): I25.10 - Atherosclerotic heart disease of [place] coronary artery without angina pectoris (5) Hematuria Qualifiers: Hematuria type: gross Qualified Code(s): R31.0 - Gross hematuria (6) GI bleed Qualifiers: GI bleed type/associated pathology: melena Qualified Code(s): K92.1 - Elisa
[2018-08-17] MEDS: Furosemide 20 MG/2 ML VIAL IVP SCH (14:02)
[2018-08-17] MEDS ORDERED: *HR* Midazolam HCl 5 MG/5 ML VIAL IVP ONE ×2 (17:19→17:28)
[2018-08-17] MEDS ORDERED: *HR* FentaNYL (PF) 100 MCG/2 ML VIAL ONE (17:19)
[2018-08-17] MEDS ORDERED: Tetracaine/Benzocaine/Butamben 1 SPRAY AEROSOL MM ONE (17:28)
[2018-08-17] MEDS ORDERED: *HR* FentaNYL (PF) 100 MCG/2 ML VIAL IVP ONE (17:28)
[2018-08-17] MEDS ORDERED: Simethicone 40 MG/0.6 ML MLS IR ONE (17:28)
--- NOTE | 2018-08-17 17:30 | Pre-Sedation Evaluation ---
Pre-sedation evaluation - Pre-sedation checklist Date of procedure: 08/17/18 Recent Vitals: Last Vital Signs Temp 97.6 F 08/17/18 14:18 Pulse 68 08/17/18 14:18 Resp 16 08/17/18 14:18 BP 167/67 08/17/18 14:18 Pulse Ox 96 08/17/18 14:18 ASA Classification *see protocol: CLASS III-Severe systemic disease Plan of Care: Pt appropriate candidate for procedure/moderate/conscious sedation, Risks/benefits of procedure/sedation discussed w/ patient/family
[2018-08-17] MEDS ORDERED: 0.9 % Sodium Chloride 1,000 ML IVC SCH (17:45)
[2018-08-17] MEDS: Hyoscyamine SL 0.125 MG TAB.SUBL SL PRN (21:50)
[2018-08-18] MEDS: *HR* Belladonna Alkaloids/Opium 30 MG RECTAL SUPPOSITORY RC PRN ×4 (00:04→19:39)
[2018-08-18] MEDS: Pantoprazole 40 MG VIAL IVP SCH ×2 (04:59→17:13)
[2018-08-18 06:19] LABS: Basophils # 0.1 K/mcL (0.0-0.2); Basophils % 0.9 %; Eosinophils # 0.5 K/mcL (0.0-0.6); Eosinophils % 6.7 %; Hematocrit 29.7 % (37.5-50.1); Hemoglobin 9.5 g/dL (12.9-16.9); Immature Granulocytes % 0.9 % (0-4); Lymphocytes # 1.4 K/mcL (0.6-4.6); Lymphocytes % 21.1 %; Mean Corpuscular Volume 90.5 fL (83.0-100.0); Mean Platelet Volume 9.9 fL (9.4-12.4); Monocytes # 0.6 K/mcL (0.0-1.3); Monocytes % 8.4 %; Neutrophils # 4.2 K/mcL (1.6-8.9); Platelet Count 215 K/mcL (140-400); Red Blood Count 3.28 M/mcL (4.19-5.50); Red Cell Distribution Width 13.5 % (11.5-14.5)
[2018-08-18 06:44] LABS: BUN/Creatinine Ratio 23 (6-26); Blood Urea Nitrogen 24 mg/dL (8-23); Calcium 8.4 mg/dL (8.6-10.3); Carbon Dioxide 29 mEq/L (23-29); Chloride 108 mEq/L (98-107); Glucose 121 mg/dL (70-105); Osmolality,Calculated 305 (280-300); Potassium 3.6 mEq/L (3.5-5.1); Sodium 145 mEq/L (136-145); eGFR For Non-African Americans > 60 (> 60)
--- NOTE | 2018-08-18 08:20 | Urology Progress Note ---
Date of Encounter: 08/18/18 Time of Encounter: 08:19 - Assessment and Plan (1) Hematuria Current Visit: Yes Status: Acute Assessment and plan: Mostly resolving. I recommend keeping the catheter in place for now while other hospital issues are being addressed. We will likely remove the catheter prior to discharge as the hematuria appears to be resolved. I suspect the catheter will caused increased risk for discomfort and infection as an outpatient if it was continued. Qualifiers: Hematuria type: gross Qualified Code(s): R31.0 - Gross hematuria Progress Note Narrative: Patient asleep Objective Initial Vital Signs Pulse Resp BP Pulse Ox 68 19 160/64 95 08/15/18 00:00 08/15/18 00:00 08/15/18 00:00 08/15/18 00:00 - General physical appearance Present: no distress - Additional Exam Patient asleep CBI is off. Very light transparent hematuria present. - Labs 08/18/18 06:07 08/18/18 06:07 Diabetes panel 08/18/18 Range/Units 06:07 Sodium 145 (136-145) mEq/L Potassium 3.6 (3.5-5.1) mEq/L Chloride 108 H (98-107) mEq/L Carbon Dioxide 29 (23-29) mEq/L BUN 24 H (8-23) mg/dL Creatinine 1.06 (0.70-1.30) mg/dL Glucose 121 H (70-105) mg/dL Calcium 8.4 L (8.6-10.3) mg/dL Calcium panel 08/18/18 Range/Units 06:07 Calcium 8.4 L (8.6-10.3) mg/dL Pituitary panel 08/18/18 Range/Units 06:07 Sodium 145 (136-145) mEq/L Potassium 3.6 (3.5-5.1) mEq/L Chloride 108 H (98-107) mEq/L Carbon Dioxide 29 (23-29) mEq/L BUN 24 H (8-23) mg/dL Creatinine 1.06 (0.70-1.30) mg/dL Glucose 121 H (70-105) mg/dL Calcium 8.4 L (8.6-10.3) mg/dL Adrenal panel 08/18/18 Range/Units 06:07 Sodium 145 (136-145) mEq/L Potassium 3.6 (3.5-5.1) mEq/L Chloride 108 H (98-107) mEq/L Carbon Dioxide 29 (23-29) mEq/L BUN 24 H (8-23) mg/dL Creatinine 1.06 (0.70-1.30) mg/dL Glucose 121 H (70-105) mg/dL Calcium 8.4 L (8.6-10.3) mg/dL - VTE Documentation of Mechanical Device: Intermittent pneumatic compression device Consult Discharge Plan - Plan Referrals: [facility] [Primary Care Provider] -
[2018-08-18] MEDS: Furosemide 20 MG/2 ML VIAL IVP SCH (09:40)
--- NOTE | 2018-08-18 14:08 | Internal Med Progress Note ---
Hospitalist Progress Note - Encounter Date of Encounter: 08/18/18 Time of Encounter: 14:07 - Subjective Interval History: Patient seen and examined this morning. No acute events. No fever, chills, N/V. NPO. no Bloody BM. - Exam Vitals: Temp Pulse Resp BP Pulse Ox 98.3 F 76 15 153/62 95 08/18/18 10:25 08/18/18 10:25 08/18/18 10:25 08/18/18 10:25 08/18/18 10:25 Exam: General: Well developed, NAD. Obese Neck: No lymphadenopathy. No JVD. No carotid bruits. No palpable thyroid. Chest: Normal thoracic expansion. Normal breath sounds. Clear to auscultation. Heart: regular rhythm. ejection systolic murmur. Abdomen: Non-distended, soft and non-tender to palpation. No peritoneal reaction. Rey catheter in place. clear urine. Extremities: No clubbing, cyanosis or edema. No calf tenderness. Normal distal pulses. Neurological: Confused. AOx1. No focal deficits - Assessment and Plan (1) Atrial fibrillation Current Visit: Yes Status: Acute (2) Congestive heart failure Current Visit: Yes Status: Acute (3) DVT prophylaxis Current Visit: Yes Status: Acute (4) Coronary artery disease Current Visit: Yes Status: Acute (5) Hematuria Current Visit: Yes Status: Acute (6) GI bleed Current Visit: Yes Status: Acute - Summary of Assessment and Plan Summary of Assessment and Plan: GI bleed - Witnessed by staff at the [facility]. No further evidence here. - EGD showed cleveland's esophagus, large hiatal, hernia, single gastric polyp. - c/w PPI. - H&H and vitals stable. will tansfuse if necessary. - Will resume coumadin-pharmacy to dose. Monitor for bleeding. Hematuria - h/o prostate ca and TURP and not had follow up. - Past history of spontaneously bleeding on warfarin. - Urology following. CBI stopped. Stared on hyoscyamine for bladder spasm. - Will resume coumadin and monitor HTN - elevated today. - resume home medications Atrial fibrillation - rate controlled. resume home medications. - [id number] of 5. - resume coumdain and monitor. - Will monitor on telemetry. Congestive heart failure - No clinical signs of acute decompensation - ECHO with EF of 60-65, Mod LVH, mild Lt diastolic dysfunction. severe pulmonary HTN. Mod aortic stenosis. Mild dilated lt atrium. - resume home medications. Coronary artery disease - Does not appear to be on aspirin or plavix at home - start home statin. DVT prophylaxis - IPC stockings. - Time Spent with Patient Total time spent is greater than 50% in coordination of care (as documented) at patient's floor/unit and/or counseling patient: Internal Medicine: Result - Labs CBC & Chem 7: 08/18/18 06:07 08/18/18 06:07 Labs: Short CBC 08/18/18 Range/Units 06:07 WBC 6.8 (4.3-11.1) K/mcL Hgb 9.5 L (12.9-16.9) g/dL Hct 29.7 L (37.5-50.1) % Plt Count 215 (140-400) K/mcL Neutrophils # 4.2 (1.6-8.9) K/mcL BMP 08/18/18 06:07 Sodium 145 Potassium 3.6 Chloride 108 H Carbon Dioxide 29 BUN 24 H Creatinine 1.06 Glucose 121 H Calcium 8.4 L - ABG Interpretation ABG results: PT/INR, D-dimer PT 28.2 Seconds (9.4-12.1) H 08/17/18 07:21 - VTE Documentation of Mechanical Device: Intermittent pneumatic compression device Consult Discharge Plan - Plan [facility]errals: [facility] [Primary Care Provider] - (1) Atrial fibrillation Qualifiers: Atrial fibrillation type: chronic Qualified Code(s): I48.2 - Chronic atrial fibrillation (2) Congestive heart failure Qualifiers: Heart failure type: unspecified Heart failure chronicity: unspecified Qualified Code(s): I50.9 - Heart failure, unspecified (4) Coronary artery disease Qualifiers: Coronary Disease-Associated Artery/Lesion type: unspecified vessel or lesion type [place] vs. transplanted heart: [place] heart Associated angina: without angina Qualified Code(s): I25.10 - Atherosclerotic heart disease of [place] coronary artery without angina pectoris (5) Hematuria Qualifiers: Hematuria type: gross Qualified Code(s): R31.0 - Gross hematuria (6) GI bleed Qualifiers: GI bleed type/associated pathology: melena Qualified Code(s): K92.1 - Melena
[2018-08-18] MEDS ORDERED: Warfarin perPT PO PRN (18:00)
[2018-08-18] MEDS ORDERED: *HR* Warfarin 2.5 MG TABLET PO ONE (18:15)
[2018-08-18] MEDS: *HR* LORazepam 0.5 MG TABLET PO SCH (19:45)
[2018-08-18] MEDS: hydrALAZINE 10 MG TABLET PO SCH (19:45)
[2018-08-19] MEDS: *HR* Belladonna Alkaloids/Opium 30 MG RECTAL SUPPOSITORY RC PRN ×2 (02:29→17:34)
[2018-08-19 05:36] LABS: Basophils % 0.6 %; Eosinophils # 0.4 K/mcL (0.0-0.6); Eosinophils % 5.6 %; Hematocrit 29.1 % (37.5-50.1); Hemoglobin 9.3 g/dL (12.9-16.9); Immature Granulocytes % 1.7 % (0-4); Lymphocytes # 1.8 K/mcL (0.6-4.6); Lymphocytes % 28.6 %; Mean Corpuscular Hemoglobin 28.9 pg (28.0-33.3); Mean Corpuscular Volume 90.4 fL (83.0-100.0); Mean Platelet Volume 10.4 fL (9.4-12.4); Monocytes # 0.5 K/mcL (0.0-1.3); Monocytes % 8.2 %; Platelet Count 238 K/mcL (140-400); Red Blood Count 3.22 M/mcL (4.19-5.50); Red Cell Distribution Width 13.3 % (11.5-14.5); Segmented Neutrophils % 55.3 %
[2018-08-19 05:40] LABS: Neutrophils # 3.5 K/mcL (1.6-8.9)
[2018-08-19 05:50] LABS: INR 1.5; Prothrombin Time 16.7 Seconds (9.4-12.1)
[2018-08-19 06:24] LABS: Platelet Estimate Normal (Normal)
--- NOTE | 2018-08-19 07:55 | Urology Progress Note ---
Date of Encounter: 08/19/18 Time of Encounter: 07:53 - Assessment and Plan (1) Hematuria Current Visit: Yes Status: Acute Assessment and plan: resolving. OK to remove cath prior to discharge back to [facility]. pt can follow with urology on a nonurgent basis in 4-6 weeks. Qualifiers: Hematuria type: gross Qualified Code(s): R31.0 - Gross hematuria Progress Note Subjective: feels better Objective Initial Vital Signs Pulse Resp BP Pulse Ox 68 19 160/64 95 08/15/18 00:00 08/15/18 00:00 08/15/18 00:00 08/15/18 00:00 - Additional Exam urine almost clear off CBI - Labs 08/19/18 05:00 08/18/18 06:07 - VTE Documentation of Mechanical Device: Intermittent pneumatic compression device Consult Discharge Plan - Plan Referrals: [facility] [Primary Care Provider] -
[2018-08-19] MEDS: hydrALAZINE 10 MG TABLET PO SCH ×3 (08:44→19:40)
[2018-08-19] MEDS: Pantoprazole 40 MG VIAL IVP SCH (08:44)
[2018-08-19] MEDS: *HR* LORazepam 0.5 MG TABLET PO SCH ×2 (08:44→19:40)
[2018-08-19] MEDS: Spironolactone 25 MG TABLET PO SCH (08:45)
[2018-08-19] MEDS: Diltiazem CD (24hr) 120 MG CAPSULE PO SCH (08:45)
[2018-08-19] MEDS: Isosorbide MONOnitrate (24 HR) 60 MG TAB.ER.24H PO SCH (08:45)
[2018-08-19] MEDS: Furosemide 20 MG TABLET PO SCH ×2 (08:48→17:34)
--- NOTE | 2018-08-19 12:50 | Discharge Summary ---
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 Patient's hematuria likely spontaneous while on Coumadin. Will need urology follow-up in 4-6 weeks Orders not resulted at time of discharge: Pending orders 08/20/18 04:00 INR/PT [Prothrombin Time INR] [COAG] AM 0400 08/21/18 04:00 INR/PT [Prothrombin Time INR] [COAG] AM 0400 08/22/18 04:00 INR/PT [Prothrombin Time INR] [COAG] AM 0400 08/23/18 04:00 INR/PT [Prothrombin Time INR] [COAG] AM 0400 Date of Encounter: 08/19/18 Time of Encounter: 12:46 - Discharge Diagnosis (1) Atrial fibrillation Priority: Secondary Status: Acute Qualifiers: Atrial fibrillation type: chronic Qualified Code(s): I48.2 - Chronic atrial fibrillation (2) Congestive heart failure Priority: Secondary Status: Acute Qualifiers: Heart failure type: unspecified Heart failure chronicity: unspecified Qualified Code(s): I50.9 - Heart failure, unspecified (3) DVT prophylaxis Priority: Secondary Status: Acute (4) Coronary artery disease Priority: Secondary Status: Acute Qualifiers: Coronary Disease-Associated Artery/Lesion type: unspecified vessel or lesion type [place] vs. transplanted heart: [place] heart Associated angina: without angina Qualified Code(s): I25.10 - Atherosclerotic heart disease of [place] coronary artery without angina pectoris (5) Hematuria Priority: Primary Status: Acute Qualifiers: Hematuria type: gross Qualified Code(s): R31.0 - Gross hematuria (6) GI bleed Priority: Primary Status: Acute Qualifiers: GI bleed type/associated pathology: melena Qualified Code(s): K92.1 - Melena Hospital course: Mr. Leary is a 82 year old male with past medical history of atrial fibrillation, CHF, CAD, dementia, hyperlipidemia, hypertension came in with complain of diane hematuria and dark tarry stools with blood mixed. Patient's Coumadin was held. Urology and GI consult was obtained. Patient had a Rey placed which had clots in it which was managed with CBI. His urine cleared up after. He had EGD which showed large hiatal hernia, Bacon's esophagus and single gastric polyp. Patient received PPI. His Coumadin was resumed given his high [id number] score. Patient did not have any further bleeding. His Rey will be removed before discharge Patient appears to be at his baseline mentation. Patient needs to go to rehabilitation and has a bad at [facility] which would be arranged by Tuesday. Patient would be conditionally discharge pending his placement. - Time Spent with Patient Total time spent providing and/or coordinating discharge services: Greater than 30 minutes (35) - Discharge Medications Home Medications: Diltiazem CD (24hr) [Cardizem CD] 120 mg PO DAILY 09/22/16 [History] Docusate [Colace] 200 mg PO BID 09/22/16 [History] Furosemide [Lasix] 20 mg PO BID 09/22/16 [History] Isosorbide MONOnitrate (24 HR) [Imdur] 60 mg PO DAILY 09/22/16 [History] LORazepam [Ativan] 0.5 mg PO BID 09/22/16 [History] Loratadine [Claritin] 10 mg PO DAILY 09/22/16 [History] Omeprazole [PriLOSEC] 20 mg PO BIDAC 09/22/16 [History] Paliperidone [Paliperidone ER] 3 mg PO DAILY 09/22/16 [History] Spironolactone [Aldactone] 25 mg PO DAILY 09/22/16 [History] Terazosin [Hytrin] 5 mg PO HS 09/22/16 [History] Warfarin [Coumadin] 5 mg PO SUMOTUWETHSA 09/22/16 [History] hydrALAZINE [HydrALAZINE] 10 mg PO Q8H 09/22/16 [History] Allopurinol [Zyloprim] 300 mg PO DAILY 08/15/18 [History] Atorvastatin Calcium [Lipitor] 40 mg PO DAILY 08/15/18 [History] Cholecalciferol (D-3) [Vitamin D] 1,000 unit PO DAILY 08/15/18 [History] Lisinopril [Zestril] 10 mg PO DAILY 08/15/18 [History] Warfarin [Coumadin] 2.5 mg PO FR 08/15/18 [History] Allergies/Adverse Reactions: Allergy/AdvReac Type Severity Reaction Status Date / Time felodipine Allergy See Verified 08/15/18 10:22 Comments Date of admission: 08/15/18 02:22 Primary care physician: PCP RISSA Consults: 08/15/18 01:45 Consult to Gastroenterology [CONS] Routine Consulting Provider: Paula Trujillo Reason for Consult: Patient transferred from [facility] for acute lower GI bleed in the setting of warfarin use. Call Completed: No 08/15/18 01:51 Consult to Urology [CONS] Routine Consulting Provider: Derek Trujillo Reason for Consult: patient admitted on transfer from the [facility] for hematuria on warfarin Call Completed: No 08/17/18 11:11 Consult to Physical Therapy [CONS] Routine Comment: Evaluate, develop and implement POC Reason for Consult: develop POC, from [facility] rehab, fall on 08/06 Does patient have active BEDREST order?: No Is patient medically & hemodynamically stable?: Yes OT [Consult to Occupational Therapy] [CONS] Routine Comment: Evaluate, develop and implement POC Reason for Consult: develop POC, from [facility], fall on 08/06 Does patient have active BEDREST order?: No Is patient medically & hemodynamically stable?: Yes Discharging clinician: Atul Nieto - Constitutional Vitals: Temp Pulse Resp BP Pulse Ox 97.3 F L 45 15 130/52 96 08/19/18 11:45 08/19/18 11:45 08/19/18 11:45 08/19/18 11:45 08/19/18 11:45 Exam: General: Well developed, NAD. Obese Neck: No lymphadenopathy. No JVD. No carotid bruits. No palpable thyroid. Chest: Normal thoracic expansion. Normal breath sounds. Clear to auscultation. Heart: regular rhythm. ejection systolic murmur. Abdomen: Non-distended, soft and non-tender to palpation. No peritoneal reaction. Rey catheter in place. clear urine. Extremities: No clubbing, cyanosis or edema. No calf tenderness. Normal distal pulses. Neurological: Confused. AOx2. No focal deficits - Patient Status Disposition: Transfer SNF Condition: Fair - Discharge Instructions [facility]: [facility] [Primary Care Provider] - - Diet and Activity Activity: as per physical therapy - VTE Documentation of Mechanical Device: Intermittent pneumatic compression device
[2018-08-19] MEDS ORDERED: *HR* Warfarin 2.5 MG TABLET PO ONE (18:00)
[2018-08-19] MEDS: Hyoscyamine SL 0.125 MG TAB.SUBL SL PRN (23:40)
[2018-08-20 03:42] LABS: INR 1.3; Prothrombin Time 14.1 Seconds (9.4-12.1)
--- NOTE | 2018-08-20 09:20 | Event Note ---
Date of Encounter: 08/20/18 Time of Encounter: 09:19 urine clear. will discharge cath as it appears discharge is pending.
[2018-08-20] MEDS: Furosemide 20 MG TABLET PO SCH ×2 (10:07→16:32)
[2018-08-20] MEDS: Pantoprazole 40 MG VIAL IVP SCH (10:07)
[2018-08-20] MEDS: Hyoscyamine SL 0.125 MG TAB.SUBL SL PRN (10:07)
[2018-08-20] MEDS: Isosorbide MONOnitrate (24 HR) 60 MG TAB.ER.24H PO SCH (10:07)
[2018-08-20] MEDS: hydrALAZINE 10 MG TABLET PO SCH ×3 (10:07→20:19)
[2018-08-20] MEDS: Spironolactone 25 MG TABLET PO SCH (10:07)
[2018-08-20] MEDS: Diltiazem CD (24hr) 120 MG CAPSULE PO SCH (10:07)
[2018-08-20] MEDS: *HR* LORazepam 0.5 MG TABLET PO SCH ×2 (10:08→20:19)
--- NOTE | 2018-08-20 13:47 | Internal Med Progress Note ---
Hospitalist Progress Note - Encounter Date of Encounter: 08/20/18 Time of Encounter: 09:56 - Subjective Interval History: Patient seen and examined this morning. No acute events. Denies new complains. No fever, chills, N/V. no Bloody BM or blood in urine. - Exam Vitals: Temp Pulse Resp BP Pulse Ox 98.5 F 50 16 114/58 94 08/20/18 10:53 08/20/18 10:53 08/20/18 10:53 08/20/18 10:53 08/20/18 10:53 Exam: General: Well developed, NAD. Obese Neck: No lymphadenopathy. No JVD. No carotid bruits. No palpable thyroid. Chest: Normal thoracic expansion. Normal breath sounds. Clear to auscultation. Heart: regular rhythm. ejection systolic murmur. Abdomen: Non-distended, soft and non-tender to palpation. No peritoneal reaction. Rey catheter in place. clear urine. Extremities: No clubbing, cyanosis or edema. No calf tenderness. Normal distal pulses. Neurological: AOx2. No focal deficits - Assessment and Plan (1) Atrial fibrillation Current Visit: Yes Status: Acute (2) Congestive heart failure Current Visit: Yes Status: Acute (3) DVT prophylaxis Current Visit: Yes Status: Acute (4) Coronary artery disease Current Visit: Yes Status: Acute (5) Hematuria Current Visit: Yes Status: Acute (6) GI bleed Current Visit: Yes Status: Acute - Summary of Assessment and Plan Summary of Assessment and Plan: GI bleed - Witnessed by staff at the [facility]. No further evidence here. - EGD showed [place]vel[place]'s esophagus, large hiatal, hernia, single gastric polyp. - c/w PPI. - H&H and vitals stable. will tansfuse if necessary. - Coumadin restarted-pharmacy to dose. Monitor for bleeding. Hematuria - h/o prostate ca and TURP and not had follow up. - Past history of spontaneously bleeding on warfarin. - Urology following. CBI stopped. Stared on hyoscyamine for bladder spasm. - Will resume coumadin and monitor - Rey to be removed before discharge. HTN - resumed on home medications - elevated this morning. Monitor for now. Atrial fibrillation - rate controlled. resumed home medications. - [id number] of 5. - resumed coumdain and monitor INR. - Will monitor on telemetry. Congestive heart failure - No clinical signs of acute decompensation - ECHO with EF of 60-65, Mod LVH, mild Lt diastolic dysfunction. severe pulmonary HTN. Mod aortic stenosis. Mild dilated lt atrium. - c/w home medications. Coronary artery disease - Does not appear to be on aspirin or plavix at home. - start home statin. DVT prophylaxis - IPC stockings. [facility] - Time Spent with Patient Total time spent is greater than 50% in coordination of care (as documented) at patient's floor/unit and/or counseling patient: Internal Medicine: Result - Labs CBC & Chem 7: 08/19/18 05:00 08/18/18 06:07 - ABG Interpretation ABG results: PT/INR, D-dimer PT 14.1 Seconds (9.4-12.1) H 08/20/18 03:24 - VTE Documentation of Mechanical Device: Intermittent pneumatic compression device Consult Discharge Plan - Plan Referrals: [facility] [Primary Care Provider] - (1) Atrial fibrillation Qualifiers: Atrial fibrillation type: chronic Qualified Code(s): I48.2 - Chronic atrial fibrillation (2) Congestive heart failure Qualifiers: Heart failure type: unspecified Heart failure chronicity: unspecified Qualified Code(s): I50.9 - Heart failure, unspecified (4) Coronary artery disease Qualifiers: Coronary Disease-Associated Artery/Lesion type: unspecified vessel or lesion type [place] vs. transplanted heart: [place] heart Associated angina: without angina Qualified Code(s): I25.10 - Atherosclerotic heart disease of [place] coronary artery without angina pectoris (5) Hematuria Qualifiers: Hematuria type: gross Qualified Code(s): R31.0 - Gross hematuria (6) GI bleed Qualifiers: GI bleed type/associated pathology: melena Qualified Code(s): K92.1 - Melena
[2018-08-20] MEDS ORDERED: *HR* Warfarin 5 MG TABLET PO ONE (18:00)
[2018-08-21 05:38] LABS: INR 1.2; Prothrombin Time 13.5 Seconds (9.4-12.1)
[2018-08-21 07:06] VITALS: BP 169/64
[2018-08-21] MEDS: hydrALAZINE 10 MG TABLET PO SCH (09:32)
[2018-08-21] MEDS: Pantoprazole 40 MG VIAL IVP SCH (09:32)
[2018-08-21] MEDS: Diltiazem CD (24hr) 120 MG CAPSULE PO SCH (09:32)
[2018-08-21] MEDS: *HR* LORazepam 0.5 MG TABLET PO SCH (09:32)
[2018-08-21] MEDS: Isosorbide MONOnitrate (24 HR) 60 MG TAB.ER.24H PO SCH (09:33)
[2018-08-21] MEDS: Spironolactone 25 MG TABLET PO SCH (09:33)
[2018-08-21] MEDS: Furosemide 20 MG TABLET PO SCH (09:33)
--- NOTE | 2018-08-21 10:07 | Urology Progress Note ---
Date of Encounter: 08/21/18 Time of Encounter: 10:06 - Assessment and Plan (1) Hematuria Current Visit: Yes Status: Resolved Assessment and plan: followup with urology in 4-6 weeks. Qualifiers: Hematuria type: gross Qualified Code(s): R31.0 - Gross hematuria Progress Note Narrative: pt urinating well. no blood Objective Initial Vital Signs Pulse Resp BP Pulse Ox 68 19 160/64 95 08/15/18 00:00 08/15/18 00:00 08/15/18 00:00 08/15/18 00:00 - Additional Exam voided urine was clear. - Labs 08/19/18 05:00 08/18/18 06:07 - VTE Documentation of Mechanical Device: Intermittent pneumatic compression device Consult Discharge Plan - Plan [facility]errals: [facility] [Primary Care Provider] -
--- NOTE | 2018-08-21 10:28 | Internal Med Progress Note ---
Hospitalist Progress Note - Encounter Date of Encounter: 08/21/18 Time of Encounter: 10:21 - Subjective Interval History: Patient seen and examined this morning. No acute events. Denies new complains. no Bloody BM or blood in urine. - Exam Vitals: Temp Pulse Resp BP Pulse Ox 98.2 F 65 16 169/64 96 08/21/18 07:05 08/21/18 09:30 08/21/18 07:05 08/21/18 07:05 08/21/18 07:05 Exam: General: Well developed, NAD. Obese Chest: Normal thoracic expansion. Normal breath sounds. Clear to auscultation. Heart: regular rhythm. ejection systolic murmur. Abdomen: Non-distended, soft and non-tender to palpation. No peritoneal reaction. Rey remove. Extremities: No clubbing, cyanosis or edema. No calf tenderness. Normal distal pulses. Neurological: AOx2. No focal deficits - Assessment and Plan (1) Atrial fibrillation Current Visit: Yes Status: Acute (2) Congestive heart failure Current Visit: Yes Status: Acute (3) DVT prophylaxis Current Visit: Yes Status: Acute (4) Coronary artery disease Current Visit: Yes Status: Acute (5) Hematuria Current Visit: Yes Status: Resolved (6) GI bleed Current Visit: Yes Status: Acute - Summary of Assessment and Plan Summary of Assessment and Plan: GI bleed - Witnessed by staff at the [facility]. No further evidence here. - EGD showed clevel[place]'s esophagus, large hiatal, hernia, single gastric polyp. - c/w PPI. - H&H and vitals stable. - Coumadin restarted-pharmacy to dose. Monitor for bleeding. Hematuria - h/o prostate ca and TURP and not had follow up. - Past history of spontaneously bleeding on warfarin. - Urology following. CBI stopped. Stared on hyoscyamine for bladder spasm. - Rey removed. No further bleeding after resuming coumadin HTN - resumed on home medications - elevated this morning. Monitor for now. Atrial fibrillation - rate controlled. resumed home medications. - [id number] of 5. - resumed coumdain and monitor INR. INR subtherapeutic. To c/w home dose. Will need to f/u INR after discharge. Congestive heart failure - No clinical signs of acute decompensation - ECHO with EF of 60-65, Mod LVH, mild Lt diastolic dysfunction. severe pulmonary HTN. Mod aortic stenosis. Mild dilated lt atrium. - c/w home medications. Coronary artery disease - Does not appear to be on aspirin or plavix at home. - start home statin. DVT prophylaxis - IPC stockings. [facility] - Time Spent with Patient Total time spent is greater than 50% in coordination of care (as documented) at patient's floor/unit and/or counseling patient: Internal Medicine: Result - Labs CBC & Chem 7: 08/19/18 05:00 08/18/18 06:07 - ABG Interpretation ABG results: PT/INR, D-dimer PT 13.5 Seconds (9.4-12.1) H 08/21/18 05:07 - VTE Documentation of Mechanical Device: Intermittent pneumatic compression device Consult Discharge Plan - Plan Referrals: [facility] [Primary Care Provider] - (1) Atrial fibrillation Qualifiers: Atrial fibrillation type: chronic Qualified Code(s): I48.2 - Chronic atrial fibrillation (2) Congestive heart failure Qualifiers: Heart failure type: unspecified Heart failure chronicity: unspecified Qualified Code(s): I50.9 - Heart failure, unspecified (4) Coronary artery disease Qualifiers: Coronary Disease-Associated Artery/Lesion type: unspecified vessel or lesion type [place] vs. transplanted heart: [place] heart Associated angina: without angina Qualified Code(s): I25.10 - Atherosclerotic heart disease of [place] coronary artery without angina pectoris (5) Hematuria Qualifiers: Hematuria type: gross Qualified Code(s): R31.0 - Gross hematuria (6) GI bleed Qualifiers: GI bleed type/associated pathology: melena Qualified Code(s): K92.1 - Melena
== END 2018-08-21 12:34 | DRG 378 ==
LOC: ICNU → SUATTDRO 02:22 → 3ANU 08-16 15:43
PROVIDERS: ADMIT Internal Medicine; ATTEND Internal Medicine